=== PATIENT | female | born 1960 | race Caucasian/White ===

== ENCOUNTER → 2016-10-10 | Outpatient (CLI) | payer BC ==
[~2016-10-10] MED LIST: POLY17PO6 PO
--- NOTE | 2016-10-10 14:27 | RADRPT ---
PROCEDURE: XR Chest. CLINICAL INDICATION: Preoperative chest TECHNIQUE: Chest PA. COMPARISON: No comparison available. FINDINGS: The mediastinal structures are unremarkable. The heart is normal in size and configuration. The pu lmonary vascularity is normal. The lung aguilar are unremarkable. No consolidation is identified. The pleural spaces are unremarkable. The axial skeleton is unremarkable. IMPRESSION: No active intrathoracic disease. RPTAT: [facility] .Vince Mendes MD, MD Date Time Electronically viewed and signed by .Vince Mendes MD, on 10/10/2016 14:26 .B/
== END | disposition home or self-care (01) ==
LOC: RAD 08:00 → EDSTATUS 11-05 14:49
PROVIDERS: ATTEND Otolaryngology
DX: Z01.818 Encounter for other preprocedural examination (principal)
CPT/HCPCS: 71010

== ENCOUNTER → 2016-11-05 | Day surgery (SDC) | END | disposition home or self-care (01) | DX: D34 Benign neoplasm of thyroid gland (principal); I10 Essential (primary) hypertension | CPT/HCPCS: 60500; 80048; 85025; 85610; 85730; 88307; 88331; J0330; J0690; J1100; J1170; J2405; J3010; Z7512; Z7610 ==